=== PATIENT | female | born 1995 | race Caucasian/White ===

== ENCOUNTER 2023-07-01 10:37 | Outpatient (CLI) | payer OTHER, SELFPAY ==
--- NOTE | ~2023-07-01 | MR_ITS ---
EXAMINATION: MR abdomen wo/w con DATE: 07/01/2023 11:20 INDICATION: Normal ultrasound with liver lesion TECHNIQUE: Magnetic resonance imaging (MRI) of the abdomen was performed without and with 15 mL Multi rashad intravenous contrast. Sequences included coronal T2-weighted SS-FSE, axial T2-weighted FS SS- FSE, axial diffusion-weighted SE, axial dual-echo T1-weighted FSPGR, and time course of postcontrast axial T1-weighted LAVA images were obtained. COMPARISON: None. FINDINGS: Heart size is normal. No pericardial or pleural effusion. Diffuse hepatic steatosis with prominent si gnal dropout on opposed phase imaging. There is a 13 x 9 mm lesion laterally in the right hepatic lob e a 16 x 11 mm lesion in the junction of the right anna hepatis and the central gallbladder fossa wh ich demonstrate decreased fat content relative to the surrounding hepatic parenchyma and which demons trate subtle peripheral enhancement on the initial arterial phase image which progressively increases in on the postcontrast imaging through 5 minutes most consistent with either focal nodular hyperplas ia or hemangioma. There is no associated increased T2 signal and would favor the former. No evident w ashout of contrast to suggest malignancy. No other hepatic lesions identified. 3 mm enhancing polyp a long the nondependent wall of the otherwise normal gallbladder. No intra or extra hepatic ductal or d uctal dilation. Pancreas, spleen, bilateral adrenal glands and visualized portions of bowels are norm al. No pathologically enlarged abdominal lymphadenopathy. Normal bone marrow signal throughout. IMPRESSION: 1. Diffuse hepatic steatosis with couple small lesions in the right buttock lobe which demonstrate salgado btle enhancement which increases to 5 minutes of post contrast imaging and favor focal nodular hyperp lasia over hemangioma. 2. Likely benign 3 mm gallbladder polyp Reviewed, dictated and finalized at location A. IMPRESSION: 1. Diffuse hepatic steatosis with couple small lesions in the right buttock lob e which demonstrate subtle enhancement which increases to 5 minutes of post con trast imaging and favor focal nodular hyperplasia over hemangioma. 2. Likely benign 3 mm gallbladder polyp
== END 2023-07-01 10:38 | disposition home or self-care (01) ==
LOC: CHSIMG 10:41
PROVIDERS: PCP Family Medicine; Visit Provider Family Medicine
DX: K76.9 Liver disease, unspecified (principal); K76.0 Fatty (change of) liver, not elsewhere classified; L98.8 Other specified disorders of the skin and subcutaneous tissue; K82.8 Other specified diseases of gallbladder
CPT/HCPCS: 74183; A9577